=== PATIENT | female | born 1955 ===

== ENCOUNTER 2023-08-10 21:19 | Inpatient (IN) ==
[2023-08-11] MEDS ORDERED: Dextrose 50% Syringe 50 ml 25 GM/50 ML SYRINGE IV PUSH PRN ×3 (01:21→10:40)
[2023-08-11] MEDS: D5LR 20 MEQ KCL 1000 ml BAG 1,000 ML IV SCH (01:38)
[2023-08-11] MEDS ORDERED: Insulin Infusion 100unit/100mL 100 UNIT/100 ML BAG IV SCH (02:00)
[2023-08-11] MEDS: Insulin Infusion 100unit/100mL 100 UNIT/100 ML BAG IV SCH (02:02)
[2023-08-11] MEDS: Enoxaparin 40 MG/0.4 ML SYR SUBCUT SCH (02:42)
[2023-08-11 03:12] LABS: Calcium 7.3 mg/dL (8.6-10.3); Creatinine, Serum 0.48 mg/dL (0.51-0.95); Magnesium 1.3 mg/dL (1.9-2.7); Phosphorus 1.2 mg/dL (2.5-5.0); Potassium 4.4 mmol/L (3.5-5.0); TSH Ultra Thyroid Stim Horm 1.9 mcIU/mL (0.34-5.60); eGFR CKD-EPI 103.1 (>60)
[2023-08-11 04:28] LABS: ABS Basophils 0.1 10^3/uL (0.0-0.1); ABS Eosinophils 0.1 10^3/uL (0.0-0.5); ABS Lymphocytes 1.6 10^3/uL (1.0-4.8); ABS Monocytes 0.6 10^3/uL (0.0-0.9); ABS Neutrophils 5.4 10^3/uL (1.5-7.6); ABS Nucleated RBC 0.01 10^3/ul; Eosinophil % 1.1 %; Hematocrit 38.4 % (35-45); Hemoglobin 13.1 g/dL (11.5-14.3); Lymphocyte % 20.5 %; Mean Corpuscular Hemoglobin 31.1 pg (27-33); Mean Corpuscular Hgb Conc 34.1 g/dL (31-36); Mean Corpuscular Volume 91.3 fL (80-97); Mean Platelet Volume 10.2 fL (7.5-11.2); Nucleated Red Blood Cells % 0.1 %/100WBC (0.0-0.8); Platelet Count 175 10^3/uL (150-450); Red Blood Count 4.21 10^6/uL (3.63-4.92); Red Cell Distribution Width 14.2 % (12-17); White Blood Count 7.8 10^3/uL (3.8-11.8)
[2023-08-11 04:46] LABS: Calcium 8.5 mg/dL (8.6-10.3); Creatinine, Serum 0.46 mg/dL (0.51-0.95); HDL Cholesterol 28.3 mg/dL; Magnesium 1.5 mg/dL (1.9-2.7); Potassium 4.2 mmol/L (3.5-5.0); eGFR CKD-EPI 104.2 (>60)
[2023-08-11] MEDS: Insulin GLARGINE 100 un/ml 10 ml VIAL SUBCUT ONE (04:59)
[2023-08-11] MEDS: Magnesium Sulfate 2 gm BAG 2 GM/50 ML BAG IVPB ONE ×2 (05:50→20:02)
[2023-08-11] MEDS: Magnesium Sulfate 2 gm BAG 2 GM/50 ML BAG ONE (05:53)
[2023-08-11] MEDS: SODIUM PHOSPHATE IV ONE (09:05)
[2023-08-11] MEDS: NS 0.9% IV ONE (09:05)
[2023-08-11] MEDS: Magnesium Sulfate IV 1GM/100ML 1 GM/100 ML BAG IV ONE (22:09)
[2023-08-12 07:10] LABS: Calcium 8.3 mg/dL (8.6-10.3); Creatinine, Serum 0.56 mg/dL (0.51-0.95); Phosphorus 3.1 mg/dL (2.5-5.0); Potassium 4.4 mmol/L (3.5-5.0); eGFR CKD-EPI 99.3 (>60)
[2023-08-12] MEDS: Insulin GLARGINE 100 un/ml 10 ml VIAL SUBCUT SCH (08:37)
[2023-08-12] MEDS: Insulin GLARGINE 100 un/ml 10 ml VIAL SUBCUT ONE (12:31)
[2023-08-12 14:17] VITALS: BP 126/57
== END 2023-08-12 15:30 | disposition home or self-care (01) | DRG 639 ==
LOC: ICU 08-11 00:55 → SUATTDRO 08-11 00:55 → MEDTELE 08-11 12:33
PROVIDERS: ADMIT Surgery Surgical Critical Care; ATTEND Student in an Organized Health Care Education/Training Program